=== PATIENT | male | born 1955 | race Caucasian/White ===

== ENCOUNTER → 2016-09-07 | Outpatient (CLI) | payer BC, MEDICARE ==
[2016-09-07 11:09] VITALS: BP 110/82; PULSE 85; RESP 16; TEMP 97.8; BMI 52.9
[2016-09-07 12:34] LABS: CH 33.2; CHCM 33.1; HCT 56.4 % (39.0-53.0); HDW 2.62; HGB 18.3 gm/dL (13.0-17.5); MCH 32.7 pg (25.0-35.0); MCHC 32.4 g/dL (31.0-37.0); MCV 100.9 fL (80.0-100.0); Mean Platelet Volume 7.4; RBC 5.58 m/uL (4.30-5.90); WBC 5.4 k/uL (3.8-10.6)
[2016-09-07 12:43] LABS: INR 1.3 (<1.1); Partial Thromboplastin Time 32.2 sec (22.0-30.0); Prothrombin Time 12.7 sec (9.0-12.0)
[2016-09-07 12:46] LABS: Hemoglobin A1C 5.7 % (4.2-6.1)
[2016-09-07 12:59] LABS: ALT 32 U/L (21-72); AST 20 U/L (17-59); Alkaline Phosphatase 67 U/L (38-126); Anion Gap 11 mmol/L; Blood Urea Nitrogen 17 mg/dL (9-20); Calcium 9.6 mg/dL (8.4-10.2); Carbon Dioxide 31 mmol/L (22-30); Chloride 100 mmol/L (98-107); Cholesterol 113 mg/dL (<200); Glucose 103 mg/dL (74-99); HDL Cholesterol 40 mg/dL (40-60); Iron 158 ug/dL (49-181); Magnesium 1.7 mg/dL (1.6-2.3); Non-African American GFR(MDRD) >60 (>60 ml/min/1.73 sqM); Potassium 4.8 mmol/L (3.5-5.1); Sodium 142 mmol/L (137-145); Total Bilirubin 0.9 mg/dL (0.2-1.3); Total Protein 7.3 g/dL (6.3-8.2); Triglycerides 142 mg/dL (<150)
[2016-09-07 13:11] LABS: % Iron Saturation 46.5 % (20-50); Prealbumin 20 mg/dL (18-36); Total Iron Binding Capacity 340 ug/dL (261-462)
[2016-09-07 14:05] LABS: Vitamin B12 307 pg/mL (239-931)
--- NOTE | 2016-09-07 20:34 | PN ---
DATE OF SERVICE: 09/07/2016 CHIEF COMPLAINT: Status post sleeve gastrectomy. HISTORY OF PRESENT ILLNESS: Rocky Vivas is a very pleasant 61-year-old gentleman who is status post sleeve gastrectomy from January 2015. His highest weight was 595 pounds. His body mass index was 83.1. His ideal body weight for his 5 foot 11 inch frame is 178 pounds. Today he comes in weighing 379 pounds. He has maintained a 216 pound weight loss. Percent excess weight loss is 52%. Body mass index reduced from 83.2 down to 52.9. Total BMI point reduction is 30.2. He incidentally has gained approximately 1 pound since last visit in June 2016, now 3 months ago. He has tried much to do for exercise; however, he is limited by his moderate size pannus which extends beyond his knees. He reports severity of hip pain as well as lower back pain and knee pain as a result of his pannus. He now presents for further evaluation and management. Incidentally, a recent CT of the abdomen and pelvis had demonstrated neoplasm along the left kidney. He is yet to have further evaluation as a result. PAST MEDICAL HISTORY: 1. Diabetes type 2, insulin dependent, resolved. 2. Dyslipidemia. 3. Hypertension. 4. Gastroesophageal reflux disease. 5. Cardiomyopathy. 6. Atrial fibrillation. 7. Morbid obesity. 8. Sleep apnea. 9. Panniculitis. 10. Left kidney neoplasm. PAST SURGICAL HISTORY: 1. Upper endoscopy. 2. Right hip replacement. 3. Status post sleeve gastrectomy. MEDICATIONS: 1. Vitamin A. 2. Pravachol. 3. Prilosec. 4. Statin powder. 5. Multivitamin. 6. Diltiazem. 7. Pradaxa. 8. Keflex. 9. Duricef. 10. Calcium carbonate. 11. Dulcolax. 12. Atenolol. 13. Lyrica. ALLERGIES: Denies. SOCIAL HISTORY: Recent tobacco user. He is . FAMILY HISTORY: Significant for morbid obesity including diabetes. Denies any gastrointestinal malignancies or food allergies. REVIEW OF SYSTEMS: CONSTITUTIONAL: Heath body weight of 178 pounds for a 5-foot, 11-inch frame. Highest weight of 595 pounds. Present weight of 379 pounds. Total weight loss is 216 pounds. Percent excess weight loss is 52%. Body mass index is reduced from 83.2 down to 52.9. Total BMI point reduction 30.2. ENDOCRINE: Resolved diabetes type 2. No longer insulin-dependent diabetic. No reports of thyroid disorders. CARDIOVASCULAR: Still history of chronic atrial fibrillation. Also history of cardiomyopathy, hypertension is resolved, however. GASTROINTESTINAL: Denies any dumping syndrome or gastroesophageal reflux disease. MUSCULOSKELETAL: Reports increased severity of lower back pain including bilateral hip and knee pain. SKIN: Moderate size pannus over 40+ pounds, extending well beyond the knees which limits his overall activity. HEMATOLOGIC: Previous history of [place] filter. No reports of recent blood clots. RESPIRATORY: Improvement of his objective sleep apnea. He still uses his machine. NEURO: History of neuropathy of the bilateral extremities moderately improved with Lyrica. No reports of headaches or seizure disorders. SKIN: Severe panniculitis with pannus weighing over 40 to 60 pounds. HEENT: No trouble with vision or hearing. PSYCH: No reports of depression or suicidal ideation. PHYSICAL EXAM: VITAL SIGNS: 97.8, 85, 16, 110/82, 5 foot 11, 379 pounds, body mass index of 52.9. GENERAL: Well-developed pleasant male no acute distress. ABDOMEN: Protuberant, soft. Pannus extends over 40+ pounds. Moderate panniculitis. Nontender. His pannus is well over 40+ pounds and extends beyond his knees. MUSCULOSKELETAL: No clubbing, cyanosis, or edema. CARDIOVASCULAR: Irregular rate, irregular rhythm. HEENT: No scleral icterus. Extraocular movements grossly intact. Moist buccal mucosa. NECK: Supple without lymphadenopathy. CHEST: Nonlabored respirations or equal bilateral excursions. NEURO: No focal or lateralizing signs. Cranial nerves II to XII grossly within normal limits. LABS: Demonstrating hemoglobin elevated at 18.3. Previous was 17.4. Hematocrit elevated at 56.4. INR elevated at 1.3. PT elevated at 12.7. PTT elevated at 32.2. Carbon dioxide elevated at 31. Glucose elevated at 103. Hemoglobin A1c down from 8.5 down to 5.7. Thyroid-stimulating hormone within normal limits. Cholesterol panel including vitamin B12 and folate and iron also within normal limits. Magnesium mildly low at 1.7. STUDIES: Previous CT of the abdomen and pelvis was reviewed, demonstrating that his abdominal wall is intact. He has a moderate size pannus, which is mostly consistent with subcutaneous fat extending to the knees. Additionally, left neoplasm, exophytic mass identified along the superior pole of the left kidney. ASSESSMENT: 1. Morbid obesity due to excess calories. 2. Body mass index reduced from 83.2 down to 52.9. 3. Recurrent panniculitis. 4. Excess abdominal tissue of the abdomen. 5. Abnormal CT of the abdomen and pelvis, for renal neoplasm. 6. Osteoarthritis of the lower back. 7. Osteoarthritis of bilateral knees. 8. Osteoporosis of bilateral hips. 9. Status post sleeve gastrectomy. 10 Dietary surveillance and counseling. 11. Secondary hyperparathyroidism secondary to poor calcium intake. 12. Vitamin A deficiency. 13. Chronic atrial fibrillation. 14. Dyslipidemia. 15. Status post massive weight loss 216 pounds. 16. History obstructive sleep apnea, resolving. 17. Diabetes type 2 insulin dependent, resolved. 18. Hypertensive heart disease with cardiomyopathy. 19. Severe medical refractory panniculitis of the abdomen with pannus over 40 pounds. 20. Osteoarthritis of the lower back secondary to morbid obesity. PLAN: 1. I did review his previous CT scan, however it is limited secondary to lack of contrast. He will most benefit from a CT of the abdomen and pelvis looking at the left neoplasms including with IV contrast. In the interim, his personal goal is to actually lose more weight. On exam, his pannus is well over 40+ pounds and extends beyond his knees. With panniculectomy, this will also help with his overall lower back pain, knee pain and hip pain also including his mobility and increasing weight loss. 2. Recommend at least a 2-week high-protein low-calorie diet with follow-up in approximately a month goal weight loss at minimum of 10 pounds. 3. As for renal neoplasm, recommend referral to a urologist for further evaluation. Should surgical intervention be needed immediately, then panniculectomy should be on hold. 4. He has been using nystatin powder well over 2+ years, for which again surgical intervention is advised. 5. Recommend follow-up regarding the rest of his trace elements of his nutrition. [facility]ALTH CENTERAdrian
[2016-09-09 22:18] LABS: Selenium 142 mcg/L (63-160)
== END | disposition home or self-care (01) ==
LOC: BARWHC3 10:15
PROVIDERS: ATTEND Surgery Plastic and Reconstructive Surgery
DX: Z48.815 Encounter for surgical aftercare following surgery on the digestive system (principal); Z98.84 Bariatric surgery status; E66.01 Morbid (severe) obesity due to excess calories; Z68.43 Body mass index [BMI] 50.0-59.9, adult; M79.3 Panniculitis, unspecified; R93.5 Abnormal findings on diagnostic imaging of other abdominal regions, including retroperitoneum; M47.896 Other spondylosis, lumbar region; M16.0 Bilateral primary osteoarthritis of hip; M17.0 Bilateral primary osteoarthritis of knee; E21.1 Secondary hyperparathyroidism, not elsewhere classified; E50.9 Vitamin A deficiency, unspecified; I48.91 Unspecified atrial fibrillation; E78.2 Mixed hyperlipidemia; G47.33 Obstructive sleep apnea (adult) (pediatric); I11.9 Hypertensive heart disease without heart failure; I42.9 Cardiomyopathy, unspecified; F17.200 Nicotine dependence, unspecified, uncomplicated; Z79.899 Other long term (current) drug therapy
CPT/HCPCS: 80053; 80061; 82306; 82525; 82607; 82728; 82746; 83036; 83540; 83550; 83735; 83970; 84100; 84134; 84255; 84425; 84443; 84590; 84630; 85027; 85610; 85730; 99211

== ENCOUNTER → 2016-09-15 | Outpatient (CLI) | payer BC, MEDICARE ==
--- NOTE | 2016-09-15 19:44 | CT ---
EXAMINATION TYPE: CT abdomen wo/w con DATE OF EXAM: 09/15/2016 7:26 PM COMPARISON: 05/16/2016 HISTORY: Pt states of renal mass. CT DLP: 5924.6 mGycm Automated exposure control for dose reduction was used. TECHNIQUE: Helical acquisition of images was performed from the lung bases through the top of iliac crest to include entire abdomen. CONTRAST: Performed with Oral Contrast and with IV Contrast, patient injected with 100 mL of Omnipaque 300. FINDINGS: Lung bases are clear of consolidation. There is no pleural effusion. There are clips from gastric surgery. There is no focal liver defect. Spleen appears normal. There is no hydronephrosis. Kidneys have normal size and contour. There is a 2.5 cm cortical cyst on the late ral left kidney. There is a 1.5 cm cortical cyst in the interpolar right kidney. There is inferior ve na cava filter noted. There is a 1 cm cortical cyst on the anterior upper pole right kidney. There is no retroperitoneal adenopathy. There is no ascites. I see no intestinal wall thickening. There is no sign of ascites. There are spondylotic changes in the lumbar spine. IMPRESSION: THERE IS A SMALL 1 CM EXOPHYTIC CORTICAL CYST ON THE UPPER POLE RIGHT KIDNEY WITHOUT CHANGE COMPARED TO LAST EXAM. STABLE EXOPHYTIC LEFT RENAL CORTICAL STABLE CYST. NO ADVERSE CHANGE COMPARED TO OLD EXA M. MILD ATHEROSCLEROTIC VASCULAR DISEASE.
== END | disposition home or self-care (01) ==
LOC: RADCTMAIN 18:00
PROVIDERS: ATTEND Surgery Plastic and Reconstructive Surgery
DX: N28.1 Cyst of kidney, acquired (principal); I70.90 Unspecified atherosclerosis
CPT/HCPCS: 74170; Q9967

== ENCOUNTER → 2016-09-28 | Outpatient (CLI) | payer BC, MEDICARE ==
[2016-09-28 09:38] VITALS: BP 102/70; PULSE 97; RESP 20; TEMP 97.8; BMI 53.2
--- NOTE | 2016-10-05 07:33 | PN ---
DATE OF SERVICE: 09/28/2016 CHIEF COMPLAINT: Follow up sleeve gastrectomy. HISTORY OF PRESENT ILLNESS: Rocky Vivas is a 61-year-old gentleman who is status post sleeve gastrectomy January 2015. His highest weight was 595 pounds. His highest body mass index was 83.1. His ideal body weight for a 5 foot 11 frame is 178 pounds. Today he comes in weighing 381 pounds. He has actually gained 2 pounds in 3 weeks. Body mass index is reduced from 83.2 down to 53.2. He has maintained a total weight loss of 214 pounds. Percent excess percent excess weight loss is 55%. Separately, he has history of growth along his left kidney, which he is pending Urology evaluation. He comes with moderate lower back pain from the size of his pannus over 50+ pounds. He now presents for further evaluation and management. PAST MEDICAL HISTORY: 1. Diabetes type 2, insulin dependent, resolved. 2. Dyslipidemia. 3. Hypertension. 4. Gastroesophageal reflux disease. 5. Cardiomyopathy. 6. Atrial fibrillation. 7. Morbid obesity. 8. Sleep apnea. 9. Panniculitis. 10. Left kidney neoplasm. PAST SURGICAL HISTORY: 1. Upper endoscopy. 2. Right hip replacement. 3. Status post sleeve gastrectomy. MEDICATIONS: 1. Vitamin A. 2. Lyrica. 3. Pravachol. 4. Prilosec. 5. Nystatin. 6. Centrum. 7. Diltiazem. 8. Pradaxa. 9. Keflex. 10. Duricef. 11. Calcium carbonate. 12. Dulcolax. 13. Atenolol. ALLERGIES: Denies. SOCIAL HISTORY: Recent tobacco user. He is . FAMILY HISTORY: Significant for morbid obesity including diabetes. Denies any gastrointestinal malignancies or food allergies. REVIEW OF SYSTEMS: CONSTITUTIONAL: Body mass index reduced from 83.2 down to 53.3. Total BMI point reduction of 30. His highest weight was 595 pounds. His ideal body weight for a 5 foot 11 frame is 178 pounds. Today he comes in weighing 381 pounds. He has actually gained 2 pounds in 3 weeks. He has maintained a total weight loss of 214 pounds. Percent excess percent excess weight loss is 55%. MUSCULOSKELETAL: Has severe lower back pain secondary to size of pannus. GENITOURINARY: Recent diagnosis of left renal neoplasm. NEURO: History of neuropathy of the bilateral lower extremities. ENDOCRINE: Resolved diabetes type 2. No longer insulin-dependent diabetic. No reports of thyroid disorders. CARDIOVASCULAR: Still history of chronic atrial fibrillation. Also history of cardiomyopathy, hypertension is resolved, however. GASTROINTESTINAL: Denies any dumping syndrome or gastroesophageal reflux disease. SKIN: Moderate size pannus over 50+ pounds, extending well beyond the knees which limits his overall activity. HEMATOLOGIC: Previous history of [place] filter. No reports of recent blood clots. RESPIRATORY: Improvement of his objective sleep apnea. He still uses his machine. SKIN: Severe panniculitis with pannus weighing over 40 to 60 pounds. HEENT: No trouble with vision or hearing. PSYCH: No reports of depression or suicidal ideation. PHYSICAL EXAM: VITAL SIGNS: 97.8, 97, 20, 102/70, 5 foot 11, 381 pounds. Body mass index of 53.3. ABDOMEN: Soft, nontender, nondistended. No palpable incisional hernias. Pannus extends down to bilateral knees. Weight of pannus is over 50+ pounds. GENERAL: Well-developed pleasant male no acute distress. MUSCULOSKELETAL: No clubbing, cyanosis, or edema. CARDIOVASCULAR: Irregular rate, irregular rhythm. HEENT: No scleral icterus. Extraocular movements grossly intact. Moist buccal mucosa. NECK: Supple without lymphadenopathy. CHEST: Nonlabored respirations or equal bilateral excursions. NEURO: No focal or lateralizing signs. Cranial nerves II to XII grossly within normal limits. STUDIES: CT of the abdomen and pelvis was review demonstrating stable left renal neoplasm of 1 cm. ASSESSMENT: 1. Morbid obesity due to excess calories. 2. Body mass index reduced from 83.2 down to 53.3. 3. Recurrent panniculitis. 4. Excess abdominal tissue of the abdomen. 5. Abnormal CT of the abdomen and pelvis, for renal neoplasm. 6. Osteoarthritis of the lower back. 7. Osteoarthritis of bilateral knees. 8. Osteoporosis of bilateral hips. 9. Status post sleeve gastrectomy. 10 Dietary surveillance and counseling. 11. Secondary hyperparathyroidism secondary to poor calcium intake. 12. Vitamin A deficiency. 13. Chronic atrial fibrillation. 14. Dyslipidemia. 15. Status post massive weight loss 216 pounds. 16. History obstructive sleep apnea, resolving. 17. Diabetes type 2 insulin dependent, resolved. 18. Hypertensive heart disease with cardiomyopathy. 19. 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 20. Osteoarthritis of the lower back secondary to morbid obesity. 21. History of left renal neoplasm. PLAN: 1. On exam, he has severe panniculitis including the weight of his pannus over 50+ pounds. As a result, this limits his ability to ambulate including his daily activities or exercise. 2. As he has a neoplasm along the left kidney, I have recommended evaluation with a urologist and referral. 3. He has completed a CT of the abdomen and pelvis which demonstrates given the size of his pannus, it is mostly consistent with skin. 4. He also reports neuropathy of the bilateral lower extremity. I have discussed options given his health insurance plan. Lyrica is not available. 5. I have recommended followup in approximately 2 to 3 months upon complete evaluation with his digital asset manager, urologist, including primary care provider. 6. Surgical options for panniculectomy were described, including inpatient hospitalization anticipated over 2 nights. 7. He is at increased risk for bleeding; however, his hemoglobin has been more than adequate at 18. 8. Risk of flap failure, infection, discussed medical deformity, need for further surgery were also reviewed. 9. Total time for the operation may easily extend over 4 hours, which was described to him and his family. 10. I have also recommended presurgery nutrition with a high protein diet to maximize wound healing including weight loss. 11. Overall, he has done extremely well over the past 2 years, maintain over 200+ pounds weight loss. 12. With the excision of his pannus over 50+ pounds, this will also help with his additional weight loss in the future. RONNIE
== END | disposition home or self-care (01) ==
LOC: BARWHC3 09:18
PROVIDERS: ATTEND Surgery Plastic and Reconstructive Surgery
DX: Z48.815 Encounter for surgical aftercare following surgery on the digestive system (principal); E66.01 Morbid (severe) obesity due to excess calories; Z68.43 Body mass index [BMI] 50.0-59.9, adult; M79.3 Panniculitis, unspecified; Z79.899 Other long term (current) drug therapy; Z98.84 Bariatric surgery status; Z86.03 Personal history of neoplasm of uncertain behavior; N28.9 Disorder of kidney and ureter, unspecified
CPT/HCPCS: 99211

== ENCOUNTER → 2017-02-14 | Outpatient (CLI) | payer MEDICARE, BC ==
[2017-02-14 16:01] LABS: Basophils % (A) 1 %; CH 33.5; CHCM 34.9; Eosinophils # (A) 0.1 k/uL (0-0.7); Eosinophils % (A) 2 %; HCT 52.1 % (39.0-53.0); HDW 2.86; HGB 18.1 gm/dL (13.0-17.5); Luc # (Auto) 0.14; Luc % (Auto) 2; Lymphocytes # (A) 1.6 k/uL (1.0-4.8); Lymphocytes % (A) 19 %; MCH 33.7 pg (25.0-35.0); MCHC 34.8 g/dL (31.0-37.0); MCV 96.6 fL (80.0-100.0); Mean Platelet Volume 7.9; Monocytes # (A) 0.5 k/uL (0-1.0); Monocytes % (A) 7 %; Neutrophils # (A) 5.6 k/uL (1.3-7.7); Neutrophils % (A) 70 %; RBC 5.39 m/uL (4.30-5.90); RDW 13.4 % (11.5-15.5); WBC (Perox) 8.09
[2017-02-14 16:12] LABS: INR 1.2 (<1.1); Partial Thromboplastin Time 38.2 sec (22.0-30.0); Prothrombin Time 12.2 sec (9.0-12.0)
[2017-02-14 16:21] LABS: ALT 35 U/L (21-72); AST 24 U/L (17-59); Alkaline Phosphatase 84 U/L (38-126); Anion Gap 12 mmol/L; Blood Urea Nitrogen 16 mg/dL (9-20); Calcium 9.5 mg/dL (8.4-10.2); Carbon Dioxide 26 mmol/L (22-30); Chloride 103 mmol/L (98-107); Glucose 128 mg/dL (74-99); Non-African American GFR(MDRD) >60 (>60 ml/min/1.73 sqM); Potassium 4.7 mmol/L (3.5-5.1); Sodium 141 mmol/L (137-145); Total Bilirubin 0.7 mg/dL (0.2-1.3); Total Protein 6.8 g/dL (6.3-8.2)
== END | disposition home or self-care (01) ==
LOC: LABWHC1 15:04
PROVIDERS: ATTEND Surgery Plastic and Reconstructive Surgery
DX: Z01.810 Encounter for preprocedural cardiovascular examination (principal); Z01.812 Encounter for preprocedural laboratory examination; Z79.01 Long term (current) use of anticoagulants
CPT/HCPCS: 36415; 80053; 85025; 85610; 85730

== ENCOUNTER → 2017-02-14 | Outpatient (CLI) | payer MEDICARE, BC ==
[2017-02-14 13:28] VITALS: BP 106/67; PULSE 80; TEMP 98.7; BMI 53.6
--- NOTE | 2017-03-16 22:52 | P.PN ---
Progress Note - Text DATE OF SERVICE: 02/14/2017 CHIEF COMPLAINT: Panniculitis. HISTORY OF PRESENT ILLNESS: Rocky Vivas is a 61-year-old gentleman who is status post sleeve gastrectomy January 2015. He reports a long- standing history of panniculitis. For over 3-5 years he's had chronic panniculitis. He has been treated with Nystatin powders and still has recurrent symptoms. Since his moderate weight loss, he reports severe lower back pain including troubles with his pannus. Now he presents for surgical excision. He has trouble with ambulation regarding his pannus. Also, his pannus almost reaches to the floor while sitting. Since his last visit 2 months ago, he has gained 2 pounds. His highest weight was 595 pounds. His highest body mass index was 83.1. His ideal body weight for a 5 foot 11 frame is 178 pounds. Today he comes in weighing 383 pounds. Body mass index is reduced from 83.2 down to 53.6. He has maintained a total weight loss of 212 pounds. Percent excess percent excess weight loss is 51%. He has seen his service advocate contact including urologist and primary care provider and is seeking surgical excision of his pannus. PAST MEDICAL HISTORY: 1. Diabetes type 2, insulin dependent, resolved. 2. Dyslipidemia. 3. Hypertension. 4. Gastroesophageal reflux disease. 5. Cardiomyopathy. 6. Atrial fibrillation. 7. Morbid obesity. 8. Sleep apnea. 9. Panniculitis. 10. Left kidney neoplasm. PAST SURGICAL HISTORY: 1. Upper endoscopy. 2. Right hip replacement. 3. Status post sleeve gastrectomy. MEDICATIONS: 1. Vitamin A. 2. Lyrica. 3. Pravachol. 4. Prilosec. 5. Nystatin. 6. Centrum. 7. Diltiazem. 8. Pradaxa. 9. Keflex. 10. Duricef. 11. Calcium carbonate. 12. Dulcolax. 13. Atenolol. ALLERGIES: Denies. SOCIAL HISTORY: Recent tobacco user. He is . FAMILY HISTORY: Significant for morbid obesity including diabetes. Denies any gastrointestinal malignancies or food allergies. REVIEW OF SYSTEMS: CONSTITUTIONAL: Body mass index reduced from 83.2 down to 53.6. Total BMI point reduction of 30. His highest weight was 595 pounds. His ideal body weight for a 5 foot 11 frame is 178 pounds. Today he comes in weighing 383 pounds. Body mass index is reduced from 83.2 down to 53.6. He has maintained a total weight loss of 212 pounds. Percent excess percent excess weight loss is 51%. MUSCULOSKELETAL: Has severe lower back pain secondary to size of pannus. GENITOURINARY: Recent diagnosis of left renal neoplasm. No reports of blood in urine. NEURO: History of neuropathy of the bilateral lower extremities. ENDOCRINE: Resolved diabetes type 2. No longer insulin-dependent diabetic. No reports of thyroid disorders. CARDIOVASCULAR: Still history of chronic atrial fibrillation. Also history of cardiomyopathy, hypertension is resolved, however. GASTROINTESTINAL: Denies any dumping syndrome or gastroesophageal reflux disease. SKIN: Moderate size pannus over 50+ pounds, extending well beyond the knees which limits his overall activity. HEMATOLOGIC: Previous history of Ya filter. No reports of recent blood clots. RESPIRATORY: Improvement of his objective sleep apnea. He still uses his machine. SKIN: Severe panniculitis with pannus weighing over 40 to 60 pounds. HEENT: No trouble with vision or hearing. PSYCH: No reports of depression or suicidal ideation. PHYSICAL EXAM: VITAL SIGNS: 5 foot 11, 383 pounds. Body mass index of 53.6. Vital Signs 02/14/17 13:22 Temperature 98.7 F Pulse Rate 80 Blood Pressure 106/67 ABDOMEN: Soft, nontender, nondistended. No palpable incisional hernias. Pannus extends down below bilateral knees. Weight of pannus is over 50+ pounds. GENERAL: Well-developed pleasant male no acute distress. MUSCULOSKELETAL: No clubbing, cyanosis, or edema. CARDIOVASCULAR: Irregular rate, irregular rhythm. HEENT: No scleral icterus. Extraocular movements grossly intact. Moist buccal mucosa. NECK: Supple without lymphadenopathy. CHEST: Nonlabored respirations or equal bilateral excursions. NEURO: No focal or lateralizing signs. Cranial nerves II to XII grossly within normal limits. SKIN: Well perfused. Good turgor. ASSESSMENT: 1. Morbid obesity due to excess calories. 2. Body mass index reduced from 83.2 down to 53.6. 3. Recurrent panniculitis. 4. Excess abdominal tissue of the abdomen. 5. Abnormal CT of the abdomen and pelvis, for renal neoplasm. 6. Osteoarthritis of the lower back. 7. Osteoarthritis of bilateral knees. 8. Osteoporosis of bilateral hips. 9. Status post sleeve gastrectomy. 10 Dietary surveillance and counseling. 11. Secondary hyperparathyroidism secondary to poor calcium intake. 12. Vitamin A deficiency. 13. Chronic atrial fibrillation. 14. Dyslipidemia. 15. Status post massive weight loss 212 pounds. 16. History obstructive sleep apnea, resolving. 17. Diabetes type 2 insulin dependent, resolved. 18. Hypertensive heart disease with cardiomyopathy. 19. 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 20. Osteoarthritis of the lower back secondary to morbid obesity. 21. History of left renal neoplasm. PLAN: 1. Surgical options for panniculectomy were described, including inpatient hospitalization anticipated over 2 nights. 2. He is at increased risk for bleeding; however, his hemoglobin has been more than adequate at 18. 3. Risk of flap failure, infection, discussed medical deformity, need for further surgery were also reviewed. 4. Total time for the operation may easily extend over 4 hours, which was described to him and his family. 5. I have also recommended presurgery nutrition with a high protein diet to maximize wound healing including weight loss. 6. Will need preoperative labs. 7. Have gone over selection of abdominal binders preoperatively including postoperatively. 8. Will need drains between 2-4 weeks postop. 9. DVT prophylaxis. 10. Antibiotic prophylaxis.
== END ==
LOC: BARWHC3 12:45
PROVIDERS: ATTEND Surgery Plastic and Reconstructive Surgery
DX: M79.3 Panniculitis, unspecified (principal); E66.01 Morbid (severe) obesity due to excess calories; M47.816 Spondylosis without myelopathy or radiculopathy, lumbar region; M17.0 Bilateral primary osteoarthritis of knee; M16.0 Bilateral primary osteoarthritis of hip; E21.3 Hyperparathyroidism, unspecified; E50.9 Vitamin A deficiency, unspecified; I48.91 Unspecified atrial fibrillation; E78.5 Hyperlipidemia, unspecified; I11.9 Hypertensive heart disease without heart failure; Z68.43 Body mass index [BMI] 50.0-59.9, adult; Z79.899 Other long term (current) drug therapy
CPT/HCPCS: 36415; 80053; 85025; 85610; 85730; 99211

== ENCOUNTER 2017-02-19 09:56 | Inpatient (IN) | payer MEDICARE, BC ==
[2017-02-13 13:52] VITALS: BMI 51.5
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
[~2017-02-19 09:56] MED LIST: DEXAMETHASONE SOD PHOSPHATE 10 MG/ML 1 ML VIAL IV ONE; LIDOCAINE 1% 20 ML VIAL (10MG/ML) FOR IV START INTRADERMA PRN; ONDANSETRON 4 MG/2 ML VIAL IVP ONE; SCOPOLAMINE 1.5MG/72HR PATCH TRANSDERM ONE; ceFAZolin 3 GM in SODIUM CHLORIDE 0.9% 100 ML IVPB ONE
[2017-02-19] MEDS ORDERED: ENOXAPARIN 40 MG/0.4 ML SYRINGE SQ ONE (10:29)
[2017-02-19 10:44] LABS: Glucose,Whole Blood 135 mg/dL (75-99)
[2017-02-19] MEDS: LACTATED RINGERS 1,000 ML IV SCH ×2 (10:44→12:22)
[2017-02-19] MEDS: ACETAMINOPHEN IV (For NPO) 1,000 MG in EMPTY BAG 1 BAG IVPB ONE ×2 (10:52→11:16)
[2017-02-19] MEDS ORDERED: BUPIVACAIN-EPI 0.5%-1:200,000 30 ML VIAL SQ ONE (12:00)
[2017-02-19] MEDS ORDERED: NEOSTIGMINE 1 MG/ML 10 ML VIAL ONE (12:24)
[2017-02-19] MEDS ORDERED: fentaNYL (PF) 50 MCG/ML 2 ML AMP ONE (12:24)
[2017-02-19] MEDS ORDERED: ROCURONIUM BROMIDE 10 MG/ML 10 ML VIAL IV ONE (12:24)
[2017-02-19] MEDS ORDERED: MIDAZOLAM 2 MG/2 ML VIAL ONE (12:24)
[2017-02-19] MEDS ORDERED: GLYCOPYRROLATE 0.2 MG/ML 2 ML VIAL ONE (12:24)
[2017-02-19] MEDS ORDERED: HYDROmorphone (PF) 1 MG/ML ONE (12:24)
[2017-02-19] MEDS ORDERED: ONDANSETRON 4 MG/2 ML VIAL ONE (12:24)
[2017-02-19] MEDS ORDERED: PROPOFOL 10 MG/ML 20 ML VIAL IV ONE (12:24)
[2017-02-19] MEDS ORDERED: LIDOCAINE 1% INJ 10MG/ML (20 ML MDV) ONE (12:24)
[2017-02-19] MEDS ORDERED: LACTATED RINGERS 1,000 ML IV ONE ×4 (13:18→17:01)
[2017-02-19] MEDS ORDERED: LIDOCAINE 0.5%-EPI 1:200,000 50 ML VIAL SQ ONE (13:20)
[2017-02-19] MEDS: HYDROmorphone 1 MG/ML 1 ML SYRINGE IVP PRN ×4 (18:03→18:31)
[2017-02-19] MEDS ORDERED: HYDROcodone/APAP 5-325MG 1 EACH TAB PO PRN (18:12)
[2017-02-19] MEDS ORDERED: NALOXONE 0.4 MG/ML 1 ML VIAL IV PRN ×2 (18:12→18:27)
[2017-02-19] MEDS ORDERED: ONDANSETRON 4 MG/2 ML VIAL IVP PRN (18:12)
[2017-02-19] MEDS: KETOROLAC 30 MG/ML 1 ML VIAL IVP SCH (18:22)
[2017-02-19] MEDS ORDERED: HYDROmorphone PCA 5 MG/25 ML SYRINGE IV PRN (18:27)
--- NOTE | 2017-02-19 18:27 | P.OP ---
Date of Procedure: 02/19/17 Preoperative Diagnosis: Postoperative Diagnosis: Procedure(s) Performed: Implants: Indications for Procedure: Operative Findings: Description of Procedure: SURGEON: JOSEPH COLE MD YOUTH MANAGER: 1. MAKENNA BERTRAND 2. JESSICA VALENCIA PREOPERATIVE DIAGNOSES: 1. Morbid obesity due to excess calories. 2. Body mass index reduced from 89.1 down to 53.0. 3. Recurrent panniculitis. 4. Excess abdominal tissue of the abdomen. 5. Abnormal CT of the abdomen and pelvis, for renal neoplasm. 6. Osteoarthritis of the lower back. 7. Osteoarthritis of bilateral knees. 8. Osteoporosis of bilateral hips. 9. Status post sleeve gastrectomy. 10 Dietary surveillance and counseling. 11. Secondary hyperparathyroidism secondary to poor calcium intake. 12. Vitamin A deficiency. 13. Chronic atrial fibrillation. 14. Dyslipidemia. 15. Status post massive weight loss 260 pounds. 16. History obstructive sleep apnea, resolving. 17. Diabetes type 2 insulin dependent, resolved. 18. Hypertensive heart disease with cardiomyopathy. 19. 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 20. Osteoarthritis of the lower back secondary to morbid obesity. 21. History of left renal neoplasm. POSTOPERATIVE DIAGNOSES: 1. Morbid obesity due to excess calories. 2. Body mass index reduced from 89.1 down to 53.0. 3. Recurrent panniculitis. 4. Excess abdominal tissue of the abdomen. 5. Abnormal CT of the abdomen and pelvis, for renal neoplasm. 6. Osteoarthritis of the lower back. 7. Osteoarthritis of bilateral knees. 8. Osteoporosis of bilateral hips. 9. Status post sleeve gastrectomy. 10 Dietary surveillance and counseling. 11. Secondary hyperparathyroidism secondary to poor calcium intake. 12. Vitamin A deficiency. 13. Chronic atrial fibrillation. 14. Dyslipidemia. 15. Status post massive weight loss 260 pounds. 16. History obstructive sleep apnea, resolving. 17. Diabetes type 2 insulin dependent, resolved. 18. Hypertensive heart disease with cardiomyopathy. 19. 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 20. Osteoarthritis of the lower back secondary to morbid obesity. 21. History of left renal neoplasm. OPERATION: 1. Panniculectomy, supra-umbilical, 36.1 pounds. ANESTHESIA: General with lidocaine with epinephrine and normal saline mixture. ESTIMATED BLOOD LOSS: 400 mL SPECIMENS REMOVED: Pannus 36.1 pounds. COMPLICATIONS: None. CONDITION: Stable. DRAINS: Two #19 Paul drains below abdominal flap extending through the pubis. OPERATIVE FINDINGS: 1. Panniculectomy, 36.1 pounds. INDICATIONS: Rocky Vivas is a 61-year-old gentleman who is status post sleeve gastrectomy January 2015. His highest weight was 638 pounds. His highest body mass index was 89.1. His ideal body weight for a 5 foot 11 frame is 178 pounds. Today he comes in weighing 378 pounds. Body mass index is reduced from 89.1 down to 52.9. He has maintained a total weight loss of 260 pounds. Percent excess percent excess weight loss is 56%. He comes with moderate lower back pain from the size of his pannus over 50+ pounds. He now presents for panniculectomy. Despite medical therapy with prescription powders such as Nystatin over 2+ years, he has developed severe medical refractory panniculitis. Given his clinical symptoms, including massive weight loss, he elected for surgical intervention with a panniculectomy. Benefits and risks of the procedure including bleeding, infection, risk of flap failure, chronic pain, cosmetic deformity, need for further surgery were described at length. Informed consent was obtained. DESCRIPTION: In the preanesthesia care unit the patient was marked with an indelible marker. He had also been given Lovenox subcutaneously. The patient was brought into the operating room and laid in supine position. After general induction, a Jung catheter was placed. The abdomen was then prepped and draped in standard sterile fashion using ChloraPrep. The skin was prepped as far laterally to the back, inferiorly to the upper thighs and superiorly to above the bilateral chest. A timeout protocol was confirmed with the surgical team regarding patient's name , procedure to be performed, including preoperative medications. He had received Ancef 3 grams IV antibiotics. Once the time-out protocol was confirmed with the surgical team, the patient was re-marked with indelible marker whereby the midline of the xiphoid to the pubis was marked. The anterior/superior iliac spine along the bilateral hips was also marked. Approximately 8 cm above the base of the penis, a transverse incision was made for the inferior portion of the flap. Using a #10 blade, the incision was taken from the midline laterally to above the anterior/superior iliac spine, initially on the left side of the patient and then on the right side of the patient. Electro-Bovie cautery was used to control for hemostasis. The dissection was taken down to the level of the fascia. Landmarks used were to the bilateral costal margins for the superior margin. Care was taken to avoid any creation of dog ears during the dissection. For postop analgesia, local with normal saline mixture was infiltrated along the subcutaneous tissue. Hemostasis was once again checked with electro-Bovie cautery. Attention was now brought to closure of the flap. Using stainless steel skin ana lilia, the midline was once again marked of the upper flap as well as the pubis. The patient was placed in a flexed position of approximately 30 degrees at the hips. The pannus was extended inferiorly to the feet. The upper flap was created once the excess skin was excised. Again care was taken to avoid any dog ears along the lateral aspect of the incisions. Once excised, the first pannus was weighed at 29 pounds. The lower pubis pannus was also resected for another 7 pounds. Total resection of 36.1 pounds of the upper and lower pannus performed. The upper and lower flaps were reapproximated at the midline and then laterally to the skin with skin ana lilia. Once reapproximated, the skin was closed in layers using 0 Vicryl for the superficial fascial system followed by running 3- 0 Monocryl for the deep dermis. Prior to skin closure, two round #19 Paul drains were placed underneath the flap and brought out just inferior to the incision along the pubis. Drain stitch using 2-0 nylon was placed. Once the incision was closed, bulb suction was attached. Hemostasis was checked. At the end of the procedure, the needle, sponge and instrument count was verified correct. Skin was cleansed with normal saline including hydrogen peroxide. Antibiotic Optifoam sponge dressing was placed over the incision following Dermabond tape. Optifoam dressing was placed over the MATTHIAS exit sites. The patient was then transferred to a hospital bed in a beach chair position. An abdominal binder was placed. The patient was taken to the postanesthesia care unit in stable condition, awake and extubated.
[2017-02-19] MEDS ORDERED: CEFADROXIL 500 MG PO SCH (21:00)
[2017-02-19] MEDS: SODIUM CHLORIDE 0.9% 1,000 ML IV SCH (21:45)
[2017-02-19] MEDS: ATENOLOL 50 MG TAB PO SCH (22:15)
[2017-02-19] MEDS: PREGABALIN 100 MG CAP PO SCH (22:16)
[2017-02-19] MEDS: DILTIAZEM ORAL 30 MG TAB PO SCH (23:03)
[2017-02-20] MEDS: KETOROLAC 30 MG/ML 1 ML VIAL IVP SCH ×3 (01:06→12:16)
[2017-02-20] MEDS: ceFAZolin 3 GM in SODIUM CHLORIDE 0.9% 100 ML IVPB SCH ×4 (01:07→23:59)
[2017-02-20] MEDS: LACTATED RINGERS 1,000 ML IV SCH ×4 (05:36→23:10)
[2017-02-20 07:33] LABS: Basophils % (A) 0 %; CH 33.6; CHCM 33.7; Eosinophils % (A) 0 %; HCT 45.9 % (39.0-53.0); HDW 2.77; HGB 15.3 gm/dL (13.0-17.5); Luc # (Auto) 0.12; Luc % (Auto) 1; Lymphocytes # (A) 0.8 k/uL (1.0-4.8); Lymphocytes % (A) 6 %; MCH 33.5 pg (25.0-35.0); MCHC 33.4 g/dL (31.0-37.0); MCV 100.3 fL (80.0-100.0); Mean Platelet Volume 7.7; Monocytes # (A) 0.8 k/uL (0-1.0); Monocytes % (A) 6 %; Neutrophils # (A) 12.1 k/uL (1.3-7.7); Neutrophils % (A) 87 %; RBC 4.58 m/uL (4.30-5.90); RDW 13.3 % (11.5-15.5); WBC 13.9 k/uL (3.8-10.6); WBC (Perox) 13.36
[2017-02-20] MEDS: ESOMEPRAZOLE 20 MG in SODIUM CHLORIDE 0.9% 50 ML IVPB SCH (09:49)
[2017-02-20] MEDS: ENOXAPARIN 40 MG/0.4 ML SYRINGE SQ SCH (09:50)
[2017-02-20] MEDS: SODIUM CHLORIDE 0.9% 1,000 ML IV SCH ×2 (10:29→16:05)
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
[2017-02-20] MEDS: DILTIAZEM ORAL 30 MG TAB PO SCH (12:54)
[2017-02-20] MEDS: ATENOLOL 50 MG TAB PO SCH (12:54)
--- NOTE | 2017-02-20 13:30 | P.PN ---
Progress Note - Text Patient yet to ambulate this morning. Nursing reports systolic blood pressure in the 90s. Patient's baseline blood pressure in the low 100s. He is pending medicine consultation. D/C kelvin. PT/OT assessment. Keep abdominal binder. Home health care for discharge planning. Will re-start pradaxa once risk of bleeding has improved. Recommend full inpatient hospitalization for complexity of surgical procedure....almost 40 pounds of pannus removed including baseline co- morbidities.
[2017-02-20] MEDS ORDERED: METOPROLOL TARTRATE 50 MG TAB PO SCH (21:00)
[2017-02-20] MEDS: PREGABALIN 100 MG CAP PO SCH (21:33)
[2017-02-21 03:49] VITALS: RESP 16
[2017-02-21] MEDS: SODIUM CHLORIDE 0.9% 1,000 ML IV SCH ×2 (05:08→11:16)
[2017-02-21 08:11] VITALS: BP 113/74; TEMP 97.6
--- NOTE | 2017-02-21 10:26 | P.PN ---
Progress Note - Text Patient reevaluated this evening. His pain is improved. He is ambulating. Anticipated discharge tomorrow after tolerating diet and home healthcare arranged.
[2017-02-21] MEDS: ENOXAPARIN 40 MG/0.4 ML SYRINGE SQ SCH (10:52)
[2017-02-21] MEDS: ESOMEPRAZOLE 20 MG in SODIUM CHLORIDE 0.9% 50 ML IVPB SCH (10:54)
[2017-02-21] MEDS: LACTATED RINGERS 1,000 ML IV SCH (11:15)
[2017-02-21 11:34] LABS: Basophils % (A) 0 %; CHCM 33.8; Eosinophils # (A) 0.1 k/uL (0-0.7); Eosinophils % (A) 1 %; HCT 40.8 % (39.0-53.0); HDW 2.83; Luc # (Auto) 0.17; Luc % (Auto) 2; Lymphocytes # (A) 1.4 k/uL (1.0-4.8); Lymphocytes % (A) 17 %; MCH 33.7 pg (25.0-35.0); MCHC 34.3 g/dL (31.0-37.0); MCV 98.3 fL (80.0-100.0); Mean Platelet Volume 7.2; Monocytes # (A) 0.7 k/uL (0-1.0); Monocytes % (A) 8 %; Neutrophils # (A) 5.7 k/uL (1.3-7.7); Neutrophils % (A) 71 %; RBC 4.15 m/uL (4.30-5.90); RDW 13.1 % (11.5-15.5); WBC (Perox) 8.58
[2017-02-21] MEDS: ceFAZolin 3 GM in SODIUM CHLORIDE 0.9% 100 ML IVPB SCH (11:35)
[2017-02-21 11:39] LABS: Anion Gap 4 mmol/L; Blood Urea Nitrogen 16 mg/dL (9-20); Calcium 8.3 mg/dL (8.4-10.2); Carbon Dioxide 29 mmol/L (22-30); Chloride 107 mmol/L (98-107); Glucose 105 mg/dL (74-99); Magnesium 1.7 mg/dL (1.6-2.3); Non-African American GFR(MDRD) >60 (>60 ml/min/1.73 sqM); Potassium 4.1 mmol/L (3.5-5.1); Sodium 140 mmol/L (137-145)
--- NOTE | 2017-02-21 17:14 | P.PN ---
Subjective patient is clinically doing well, medically stable to be discharged had an episode of vomiting yesterday. Patient heart rate appears to be well controlled up an appellation on metoprolol. We obtained the EKG earlier today which showed chronic A. fib. Patient need to be restarted back on his anticoagulation. Objective - Vital Signs Vital signs: Vital Signs Temp 97.6 F 02/21/17 07:00 Pulse 90 02/21/17 07:00 Resp 16 02/21/17 07:00 BP 113/74 02/21/17 07:00 Pulse Ox 96 02/21/17 07:00 Intake & Output 02/20/17 02/21/17 02/21/17 18:59 06:59 18:59 Intake Total 1600 2100 Output Total 875 1040 700 Balance 725 1060 -700 Intake: Intake, IV Titration 800 900 Amount Sodium Chloride 0.9% 1, 800 800 000 ml @ 100 mls/hr IV . Q10H [facility] Rx#:[id number] ceFAZolin 3 gm In Sodium 100 Chloride 0.9% 100 ml @ 100 mls/hr IVPB Q8HR [facility] Rx#:[id number] Oral 800 1200 Output: Drainage 150 190 100 Left Groin 55 30 right groin 150 135 70 Urine 725 850 600 Uretheral (Jung) 500 Other: Voiding Method Urinal # Voids 1 - Exam PHYSICAL EXAMINATION: GENERAL: The patient is alert and oriented x3, not in any acute distress. Well developed, well nourished. HEENT: Pupils are round and equally reacting to light. EOMI. No scleral icterus. No conjunctival pallor. Normocephalic, atraumatic. No pharyngeal erythema. No thyromegaly. CARDIOVASCULAR: S1 and S2 present. No murmurs, rubs, or gallops. PULMONARY: Chest is clear to auscultation, no wheezing or crackles. ABDOMEN: Soft, nontender, nondistended, normoactive bowel sounds. No palpable organomegaly. MUSCULOSKELETAL: No joint swelling or deformity. EXTREMITIES: No cyanosis, clubbing, or pedal edema. NEUROLOGICAL: Gross neurological examination did not reveal any focal deficits. SKIN: No rashes. - Labs CBC & Chem 7: 02/21/17 10:53 02/21/17 10:53 Labs: Abnormal Lab Results - Last 24 Hours (Table) 02/21/17 02/21/17 Range/Units 10:53 10:53 RBC 4.15 L (4.30-5.90) m/uL Plt Count 126 L (150-450) k/uL Glucose 105 H (74-99) mg/dL Calcium 8.3 L (8.4-10.2) mg/dL Assessment and Plan Plan: 1 leucocytosis: Without any signs or symptoms of infection reactive in nature secondary to surgery no further intervention is necessary. 2 atrial fibrillation: Presently rate controlled at this point of time and the coagulation can be resumed whenever he disabled appropriate from surgical perspective. 3 hypotension: Patient doesn't have any symptoms at this point of time because of hypotension medication reconciliation was done and patient was given prescription for metoprolol. #4 morbid obesity: Patient will need sleep study as an outpatient patient is status post bariatric surgery. 5 hyperlipidemia
[2017-02-21 18:46] VITALS: PULSE 108
[2017-02-22] MEDS ORDERED: PANTOPRAZOLE 40 MG TABLET PO SCH (07:30)
== END 2017-02-21 20:17 | disposition home health service (06) | DRG 571 ==
LOC: OR 09:56 → 3SUR 17:35 → OR 02-20 15:29 → 3SUR 02-20 15:30
PROVIDERS: ADMIT Surgery Plastic and Reconstructive Surgery; ATTEND Surgery Plastic and Reconstructive Surgery
PROC: 0HB7XZZ Excision of Abdomen Skin, External Approach (ICD-10-PCS; principal; 2017-02-20)
DX: M79.3 Panniculitis, unspecified (principal); I42.9 Cardiomyopathy, unspecified; Z68.43 Body mass index [BMI] 50.0-59.9, adult; I11.9 Hypertensive heart disease without heart failure; E66.01 Morbid (severe) obesity due to excess calories; N25.81 Secondary hyperparathyroidism of renal origin; I48.2 Chronic atrial fibrillation; E50.9 Vitamin A deficiency, unspecified; D72.829 Elevated white blood cell count, unspecified; E78.5 Hyperlipidemia, unspecified; G47.33 Obstructive sleep apnea (adult) (pediatric); K21.9 Gastro-esophageal reflux disease without esophagitis; M17.0 Bilateral primary osteoarthritis of knee; M47.9 Spondylosis, unspecified; M81.0 Age-related osteoporosis without current pathological fracture; Z79.01 Long term (current) use of anticoagulants; Z79.899 Other long term (current) drug therapy; Z83.3 Family history of diabetes mellitus; Z87.891 Personal history of nicotine dependence; Z96.641 Presence of right artificial hip joint; Z98.84 Bariatric surgery status
CPT/HCPCS: 80048; 83735; 85025; 93005; 94760; 94762

== ENCOUNTER → 2017-02-23 | Outpatient (CLI) | payer MEDICARE, BC ==
[2017-02-23 11:35] LABS: CH 34.2; CHCM 34.3; HCT 45.3 % (39.0-53.0); HDW 2.82; HGB 15.1 gm/dL (13.0-17.5); MCH 33.3 pg (25.0-35.0); MCHC 33.3 g/dL (31.0-37.0); MCV 100.2 fL (80.0-100.0); RBC 4.52 m/uL (4.30-5.90); RDW 13.6 % (11.5-15.5)
[2017-02-23 12:05] VITALS: BP 106/77; PULSE 112; TEMP 98.2; BMI 48.8
--- NOTE | 2017-03-18 14:02 | P.PN ---
Progress Note - Text DATE OF SERVICE: 02/23/2017 CHIEF COMPLAINT: Panniculitis. HISTORY OF PRESENT ILLNESS: Rocky Vivas is a 61-year-old gentleman who is status post sleeve gastrectomy January 2015. He had a long- standing history of panniculitis following massive weight loss over 200+ pounds. He is now status post panniculectomy with 36 pounds of skin removal on 02/20/2017. His highest weight was 595 pounds. His highest body mass index was 83.1. His ideal body weight for a 5 foot 11 frame is 178 pounds. Today he comes in weighing 349 pounds. Body mass index is reduced from 83.2 down to 48.8. He has maintained a total weight loss of 246 pounds. Percent excess percent excess weight loss is 59%. He reports improvement of his lower back pain. PHYSICAL EXAM: VITAL SIGNS: 5 foot 11, 349 pounds. Body mass index of 48.8. Vital Signs 02/23/17 11:57 Temperature 98.2 F Pulse Rate 112 H Blood Pressure 106/77 ABDOMEN: Soft, nondistended. External dressings removed. No cellulitis. MATTHIAS drains serosanguineous. No signs of infection. GENERAL: Well-developed pleasant male no acute distress. MUSCULOSKELETAL: No clubbing, cyanosis, or edema. CARDIOVASCULAR: Irregular rate, irregular rhythm. HEENT: No scleral icterus. Extraocular movements grossly intact. Moist buccal mucosa. NECK: Supple without lymphadenopathy. CHEST: Nonlabored respirations or equal bilateral excursions. NEURO: No focal or lateralizing signs. Cranial nerves II to XII grossly within normal limits. SKIN: Well perfused. Good turgor. Folliculitis of the groin. ASSESSMENT: 1. Morbid obesity due to excess calories. 2. Body mass index reduced from 83.2 down to 48.8. 3. Recurrent panniculitis, now resolved. 4. Status post sleeve gastrectomy. 5. Status post massive weight loss 246 pounds. 6. Hypertensive heart disease with cardiomyopathy. 7. Status post panniculectomy. PLAN: 1. Recommend abdominal binder to be worn at all times. 2. Continue MATTHIAS outputs measurement. 3. He has signs of folliculitis where Nystatin treatment is advised. 4. External dressing changed to prevent infection. 5. Follow-up in one week.
== END | disposition home or self-care (01) ==
LOC: BARWHC3 09:45
PROVIDERS: ATTEND Surgery Plastic and Reconstructive Surgery
DX: E66.01 Morbid (severe) obesity due to excess calories (principal); I11.9 Hypertensive heart disease without heart failure; Z98.890 Other specified postprocedural states; Z68.45 Body mass index [BMI] 70 or greater, adult
CPT/HCPCS: 85027; G0463; 99212

== ENCOUNTER → 2017-03-07 | Outpatient (CLI) | payer MEDICARE, BC ==
[2017-03-07 13:16] VITALS: BP 107/76; PULSE 94; RESP 16; TEMP 98; BMI 49.0
--- NOTE | 2017-03-18 15:28 | P.PN ---
Progress Note - Text DATE OF SERVICE: 03/07/2017 CHIEF COMPLAINT: Follow panniculectomy. HISTORY OF PRESENT ILLNESS: Rocky Vivas is a 61-year-old gentleman status post panniculectomy with 36 pounds of skin removal on 2016. His highest weight was 595 pounds. His highest body mass index was 83.1. His ideal body weight for a 5 foot 11 frame is 178 pounds. Today he comes in weighing 351 pounds. He has gained 2 pounds in 2 weeks. Body mass index is reduced from 83.2 down to 49.0. His total weight loss is 244 pounds. Percent excess percent excess weight loss is 59%. He reports improvement of his lower back pain. No reports of redness from his incisions. His folliculitis is moderately improved. He and his reports moderate MATTHIAS drainage. PHYSICAL EXAM: VITAL SIGNS: 5 foot 11, 351 pounds. Body mass index of 49.0. Vital Signs 03/07/17 13:14 Temperature 98.0 F Pulse Rate 94 Respiratory 16 Rate Blood Pressure 107/76 ABDOMEN: Soft, nondistended. MATTHIAS serosanguineous. No erythema along her incisions. CHG dressing is placed along MATTHIAS sites. GENERAL: Well-developed pleasant male no acute distress. MUSCULOSKELETAL: No clubbing, cyanosis, or edema. CARDIOVASCULAR: Irregular rate, irregular rhythm. HEENT: No scleral icterus. Extraocular movements grossly intact. Moist buccal mucosa. NECK: Supple without lymphadenopathy. CHEST: Nonlabored respirations or equal bilateral excursions. NEURO: No focal or lateralizing signs. Cranial nerves II to XII grossly within normal limits. SKIN: Well perfused. Good turgor. Improved folliculitis of the groin. ASSESSMENT: 1. Morbid obesity due to excess calories. 2. Body mass index reduced from 83.2 down to 49.0. 3. Status post panniculectomy. PLAN: 1. MATTHIAS outputs are still over 20-30 mL daily. 2. Recommend dressing changes every 3-5 days. 3. Wear abdominal binder at all times. 4. He will continue with his home medications as prescribed.
== END | disposition home or self-care (01) ==
LOC: BARWHC3 12:59
PROVIDERS: ATTEND Surgery Plastic and Reconstructive Surgery
DX: Z09 Encounter for follow-up examination after completed treatment for conditions other than malignant neoplasm (principal); E66.01 Morbid (severe) obesity due to excess calories; Z98.890 Other specified postprocedural states; Z68.42 Body mass index [BMI] 45.0-49.9, adult
CPT/HCPCS: 99211

== ENCOUNTER → 2017-03-21 | Outpatient (CLI) | payer MEDICARE, BC ==
--- NOTE | 2017-04-29 19:49 | P.PN ---
Progress Note - Text DATE OF SERVICE: 03/21/2017 CHIEF COMPLAINT: Status post panniculectomy. 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 His highest weight was 595 pounds. His highest body mass index was 83.1. His ideal body weight for a 5 foot 11 frame is 178 pounds. Today he comes in weighing 354 pounds. Body mass index is reduced from 83.2 down to 49.5. He has maintained a total weight loss of 241 pounds. Percent excess percent excess weight loss is 58%. He is status post panniculectomy on 02/20/2017. He has lost 1 pound in 1 week. His MATTHIAS outputs are still over 30-mL daily. PHYSICAL EXAM: VITAL SIGNS: 5 foot 11, 354 pounds. Body mass index of 49.5. Vital Signs Temp 98.4 F 03/21/17 13:24 Pulse 86 03/21/17 13:24 Resp 16 03/21/17 13:24 BP 130/78 03/21/17 13:24 Pulse Ox ABDOMEN: Soft, nontender, nondistended. MATTHIAS drains serosanguineous over 30 mL daily. No signs of infection. Panniculectomy incisions have granulated. GENERAL: Well-developed pleasant male no acute distress. MUSCULOSKELETAL: No clubbing, cyanosis, or edema. CARDIOVASCULAR: Irregular rate, irregular rhythm. HEENT: No scleral icterus. Extraocular movements grossly intact. Moist buccal mucosa. NECK: Supple without lymphadenopathy. CHEST: Nonlabored respirations or equal bilateral excursions. NEURO: No focal or lateralizing signs. Cranial nerves II to XII grossly within normal limits. SKIN: Well perfused. Good turgor. ASSESSMENT: 1. Morbid obesity due to excess calories. 2. Body mass index reduced from 83.2 down to 49.5 3. Status post panniculectomy. PLAN: 1. Dressings along the MATTHIAS sites were changed at bedside. 2. Anticipate discontinuing MATTHIAS in 1 week. 3. He was advised to wear an abdominal binder at all times to decrease MATTHIAS outputs.
== END | disposition home or self-care (01) ==
CPT/HCPCS: 99211

== ENCOUNTER → 2017-03-28 | Outpatient (CLI) | payer MEDICARE, BC ==
--- NOTE | 2017-05-05 04:35 | P.PN ---
Progress Note - Text DATE OF SERVICE: 03/28/2017 CHIEF COMPLAINT: Status post panniculectomy. 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 His highest weight was 595 pounds. His highest body mass index was 83.1. His ideal body weight for a 5 foot 11 frame is 178 pounds. Today he comes in weighing 354 pounds. Body mass index is reduced from 83.2 down to 49.5. He has maintained a total weight loss of 241 pounds. Percent excess percent excess weight loss is 58%. He is status post panniculectomy on 02/20/2017. His weight is maintained from 1 week ago. Output from right side over 90 to 100 mL daily. He reports taking of his abdominal binder quite often. PHYSICAL EXAM: VITAL SIGNS: 5 foot 11, 354 pounds. Body mass index of 49.4. Vital Signs Temp 97.7 F 03/28/17 13:41 Pulse 91 03/28/17 13:41 Resp 16 03/28/17 13:41 BP 117/65 03/28/17 13:41 Pulse Ox ABDOMEN: Soft, nontender, nondistended. Left MATTHIAS drain discontinued. No cellulitis. Panniculectomy skin incision completely granulated. Dressing changed along the right side with CHG Tegaderm. GENERAL: Well-developed pleasant male no acute distress. MUSCULOSKELETAL: No clubbing, cyanosis, or edema. CARDIOVASCULAR: Irregular rate, irregular rhythm. HEENT: No scleral icterus. Extraocular movements grossly intact. Moist buccal mucosa. NECK: Supple without lymphadenopathy. CHEST: Nonlabored respirations or equal bilateral excursions. NEURO: No focal or lateralizing signs. Cranial nerves II to XII grossly within normal limits. SKIN: Well perfused. Good turgor. ASSESSMENT: 1. Morbid obesity due to excess calories. 2. Body mass index reduced from 83.2 down to 49.4 3. Status post panniculectomy. PLAN: 1. He reports the drainage from his right MATTHIAS drain is sporadic however with increasing amount. This is linked to the frequency of him wearing his abdominal binder. 2. He will wear his abdominal binder at all times. 3. Follow-up in the office in 2 weeks for potential discontinuation of the right MATTHIAS drain.
== END | disposition home or self-care (01) ==
CPT/HCPCS: 99211

== ENCOUNTER → 2017-04-11 | Outpatient (CLI) | payer MEDICARE, BC ==
[2017-04-11 13:15] VITALS: BP 120/77; PULSE 97; TEMP 97.9; BMI 50.1
--- NOTE | 2017-04-11 15:29 | CT ---
EXAMINATION TYPE: CT abdomen pelvis wo con DATE OF EXAM: 04/11/2017 COMPARISON: Prior CT 09/15/2016 HISTORY: Renal stone, drainage status post surgery CT DLP: 2976.2 mGycm Automated exposure control for dose reduction was used. TECHNIQUE: Helical acquisition of images from the lung bases through the pelvis. FINDINGS: LUNG BASES: No significant abnormality is appreciated. AORTA: Active contrast may compromise the exam. Aorta is not aneurysmal but shows atheromatous montalvo e and the inferior vena cava shows filter present with the nose near the confluence with the right re nal vein and left renal vein LIVER/GB: Some dependent hyperdensity within the gallbladder suggestive of stones. Liver shows no mas s. PANCREAS: No significant abnormality is seen. SPLEEN: No significant abnormality is seen. ADRENALS: No significant abnormality is seen. KIDNEYS: No significant abnormality is seen. Anterior abdominal wall at the level of patient's prior surgery shows air density as well as increase d soft tissue attenuation, minimal local fluid present within the subcutaneous fat. There is associat ed skin thickening. REPRODUCTIVE ORGANS: No significant abnormality is seen. URINARY BLADDER: No significant abnormality is seen. BOWEL: Patient is status post gastric sleeve. There is no evident bowel obstruction. FREE AIR: No Free Air is visible. ASCITES: None visible. PELVIC ADENOPATHY: None visualized. RETROPERITONEAL ADENOPATHY: No Retroperitoneal Adenopathy visible. OSSEOUS STRUCTURES: Patient is post right hip arthroplasty, artifact may obscure detail within the p liz. Degenerative disc changes are present in the visualized spine. There is a spinal curvature.. IMPRESSION: CORRELATE TO EXCLUDE CELLULITIS AT THE SITE OF PATIENT'S BIOPSY. THERE MAY BE ASSOCIATED PHLEGMON, FO LLOW-UP FOR POSSIBLE ABSCESS, AIR IS PRESENT WITHIN THE SURGICAL BED. CHOLELITHIASIS. NONCONTRAST EXA M MAY LIMIT EVALUATION. POSTOP CHANGES.
--- NOTE | 2017-05-05 15:41 | P.PN ---
Progress Note - Text DATE OF SERVICE: 04/11/2017 CHIEF COMPLAINT: Status post panniculectomy. 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 His highest weight was 595 pounds. His highest body mass index was 83.1. His ideal body weight for a 5 foot 11 frame is 178 pounds. Today he comes in weighing 358 pounds. He has gained 4 pounds in 2 weeks. Body mass index is reduced from 83.2 down to 50.1. He has maintained a total weight loss of 237 pounds. Percent excess percent excess weight loss is 57%. He is status post panniculectomy on 02/20/2017. No reports of increased abdominal pain or swelling. No reports of fevers or chills. No reports of cellulitis. PHYSICAL EXAM: VITAL SIGNS: 5 foot 11, 358 pounds. Body mass index of 50.1. Vital Signs Temp 97.9 F 04/11/17 13:10 Pulse 97 04/11/17 13:10 Resp BP 120/77 04/11/17 13:10 Pulse Ox ABDOMEN: Soft, nontender, nondistended. Right MATTHIAS drain discontinued. No cellulitis. Palpable left-sided swelling. Panniculectomy skin incision completely granulated. GENERAL: Well-developed pleasant male no acute distress. MUSCULOSKELETAL: No clubbing, cyanosis, or edema. CARDIOVASCULAR: Irregular rate, irregular rhythm. HEENT: No scleral icterus. Extraocular movements grossly intact. Moist buccal mucosa. NECK: Supple without lymphadenopathy. CHEST: Nonlabored respirations or equal bilateral excursions. NEURO: No focal or lateralizing signs. Cranial nerves II to XII grossly within normal limits. SKIN: Well perfused. Good turgor. ASSESSMENT: 1. Morbid obesity due to excess calories. 2. Body mass index reduced from 83.2 down to 50.1 3. Status post panniculectomy. PLAN: 1. All of his drains are now discontinued. He is at increased risk of seromas. This was reviewed with the patient's family. He is recommended to wear his abdominal binder at all times and fairly well fitted. 2. On exam, he has fullness along the left lower abdomen. Recommend CT imaging with potential drainage of abdominal seroma. 3. Patient and family are recommended to follow up sooner should he have increased swelling or discomfort along the abdomen.
== END | disposition home or self-care (01) ==
LOC: BARWHC3 12:33
PROVIDERS: ATTEND Surgery Plastic and Reconstructive Surgery
DX: Z48.817 Encounter for surgical aftercare following surgery on the skin and subcutaneous tissue (principal); E66.01 Morbid (severe) obesity due to excess calories; Z68.43 Body mass index [BMI] 50.0-59.9, adult; K80.20 Calculus of gallbladder without cholecystitis without obstruction; Z98.890 Other specified postprocedural states
CPT/HCPCS: 74176; G0463; 99212

== ENCOUNTER 2017-04-23 08:59 | Day surgery (SDC) | payer MEDICARE, BC ==
[2017-04-23 09:39] VITALS: TEMP 97.8
--- NOTE | 2017-04-23 10:45 | US ---
EXAMINATION TYPE: US asp abscess/hemat/cyst DATE OF EXAM: 04/23/2017 HISTORY: Seroma FINDINGS: Maximal barrier technique was utilized. The skin overlying a suitable path to the fluid wa s localized with ultrasound and the overlying skin prepped and draped. Lidocaine was used for local anesthesia. A skin bernice made with a scalpel. Access was gained under direct ultrasound guidance to the fluid with an 18-gauge needle to the left anterior abdominal wall. Ultrasound was utilized using sterile technique. 150cc serous fluid returned. The needle was then removed. Hemostasis achieved. No immediate complication and the patient remained in stable condition. IMPRESSION: STATUS POST ULTRASOUND GUIDED SEROMA DRAINAGE, THIS PROCEDURE WAS PERFORMED BY THE UNDERS IGNED.
[2017-04-23 11:00] VITALS: BP 107/67; PULSE 80; RESP 16
== END 2017-04-23 10:50 | disposition home or self-care (01) ==
LOC: RADPROMAIN 08:59
PROVIDERS: ATTEND Surgery Plastic and Reconstructive Surgery
DX: L02.211 Cutaneous abscess of abdominal wall (principal)
CPT/HCPCS: 10160